=== PATIENT | female | born 1965 | race African-American/Black ===

== ENCOUNTER 2023-07-16 17:35 | Observation (INO) | payer MEDICARE, OTHER ==
[2023-07-16] MEDS ORDERED: Ondansetron ODT 4 MG TAB PO PRN (18:03)
[2023-07-16] MEDS ORDERED: Ondansetron PF 4 MG/2 ML Vial IVP PRN (18:03)
[2023-07-16] MEDS ORDERED: Acetaminophen 325 MG TAB PO PRN (18:03)
[2023-07-16] MEDS ORDERED: Dextrose 50% Abboject 50 ML SYRINGE SLOW IVP PRN (18:04)
[2023-07-16] MEDS ORDERED: Glucagon 1 MG/ML KIT IM PRN (18:04)
[2023-07-16] MEDS ORDERED: HumaLOG 300 UNITS/3 ML VIAL SC PRN (18:04)
[2023-07-16] MEDS ORDERED: Dextrose 5% in Water 1,000 ML IV PRN (18:04)
[2023-07-16 18:15] VITALS: BMI 57.0
[2023-07-16 19:16] LABS: Troponin I Less than 0.010 ng/mL (< 0.028)
[2023-07-16] MEDS: Acetaminophen/Codeine 30-300mg Tablet PO PRN (21:57)
[2023-07-16 22:06] LABS: Troponin I Less than 0.010 ng/mL (< 0.028)
[2023-07-17] MEDS: Acetaminophen/Codeine 30-300mg Tablet PO PRN (04:06)
[2023-07-17 04:45] LABS: #Eosinphils 0.1 10x3/uL (0.0-0.5); #Monocytes 0.4 10x3/uL (0.0-1.1); #Neutrophils 1.8 10x3/uL (1.5-8.4); %Basophils 0.6 % (0.0-2.0); %Eosinophils 1.4 % (0.0-6.0); %Lymphocytes 54.5 % (18.0-47.0); %Monocytes 7.3 % (0.0-10.0); Hematocrit 34.2 % (34.9-44.5); Hemoglobin 10.8 g/dL (12.0-15.5); Mean Corpuscular HGB CONC 31.6 g/dL (32.0-36.0); Mean Corpuscular Hemoglobin 26.7 pg (27.0-33.0); Mean Corpuscular Volume 84.7 fl (81.6-98.3); Mean Platelet Volume 11.1 fl (7.4-10.4); Platelet Count 219 10x3/uL (150-450); RBC Distribution Width 14.1 % (11.5-14.5); Red Blood Cell (RBC) Count 4.04 10x6/uL (3.90-5.03); White Blood Cell (WBC) Count 5.1 10x3/uL (3.5-10.5)
[2023-07-17 04:58] LABS: Anion Gap 14 mmol/L (10-20); BUN (Urea Nitrogen) 8 mg/dL (9.8-20.1); Calc. Creatinine Clearance 195 mL/min (70-130); Calcium 8.3 mg/dL (7.8-10.44); Carbon Dioxide 25 mmol/L (22-29); Cardiac Risk 3.2 (Less than 4.5); Chloride 103 mmol/L (98-107); Cholesterol 169 mg/dl (< 200 Desired); Estimated GFR 83; Glucose 277 mg/dL (70-105); HDL Cholesterol 53 mg/dL (>60 Neg Risk); LDL Cholesterol, Calculated 91 mg/dL; Potassium 3.9 mmol/L (3.5-5.1); Sodium 138 mmol/L (136-145); Triglycerides 126 mg/dL (Less than 150)
[2023-07-17] MEDS: HumaLOG 300 UNITS/3 ML VIAL SC PRN ×2 (06:00→11:21)
[2023-07-17 12:37] VITALS: BP 165/78; TEMP 98
[2023-07-17 14:13] LABS: Hemoglobin A1c 11.4 % (4.0-6.0)
[2023-07-17] MEDS ORDERED: Acetaminophen/Codeine 30-300mg Tablet PO PRN (15:06)
[2023-07-17] MEDS ORDERED: glipiZIDE 5 MG TAB PO SCH (16:30)
[2023-07-17] MEDS ORDERED: Gabapentin 400 MG CAP PO SCH (21:00)
[2023-07-17] MEDS ORDERED: Atorvastatin Calcium 40 MG TAB PO SCH (21:00)
[2023-07-17] MEDS ORDERED: Sacubitril 49 MG/Valsartan 51 MG TABLET PO SCH (21:00)
[2023-07-17] MEDS ORDERED: Metoprolol Tartrate 50 MG TAB PO SCH (21:00)
[2023-07-17] MEDS ORDERED: Lantus 1000 UNITS/10 ML VIAL SC SCH (21:00)
[2023-07-17] MEDS ORDERED: Citalopram 20 MG TAB PO SCH (21:00)
[2023-07-18] MEDS ORDERED: Potassium Chloride 20 MEQ TAB PO SCH (09:00)
[2023-07-18] MEDS ORDERED: Ranolazine 500 MG ER.TAB PO SCH (09:00)
[2023-07-18] MEDS ORDERED: Alogliptin 25 MG TAB PO SCH (09:00)
[2023-07-18] MEDS ORDERED: Aspirin 81 mg Enteric Coated Tablet PO SCH (09:00)
[2023-07-18] MEDS ORDERED: Amlodipine 10 MG TAB PO SCH (09:00)
[2023-07-18] MEDS ORDERED: Clopidogrel Bisulfate 75 MG TAB PO SCH (09:00)
== END 2023-07-17 15:15 | disposition home or self-care (01) ==
LOC: INTOOBSV 17:35 → CSHTELE 17:35
PROVIDERS: ADMIT Family Medicine; ATTEND Family Medicine
DX: R07.9 Chest pain, unspecified (principal); I25.10 Atherosclerotic heart disease of native coronary artery without angina pectoris; I25.5 Ischemic cardiomyopathy; E11.42 Type 2 diabetes mellitus with diabetic polyneuropathy; I10 Essential (primary) hypertension; E78.5 Hyperlipidemia, unspecified; E66.01 Morbid (severe) obesity due to excess calories; M19.90 Unspecified osteoarthritis, unspecified site; Z95.1 Presence of aortocoronary bypass graft; Z88.5 Allergy status to narcotic agent; Z88.6 Allergy status to analgesic agent; Z79.82 Long term (current) use of aspirin; Z79.84 Long term (current) use of oral hypoglycemic drugs; Z79.02 Long term (current) use of antithrombotics/antiplatelets; Z68.43 Body mass index [BMI] 50.0-59.9, adult; Z79.4 Long term (current) use of insulin; Z90.49 Acquired absence of other specified parts of digestive tract; Z95.810 Presence of automatic (implantable) cardiac defibrillator
CPT/HCPCS: 80048; 80061; 82962 ×2; 83036; 84443; 84484; 85025; 93005; 93306; 94760 ×2; G0378 ×2; 36415; 36416; 93010; J1815

== ENCOUNTER 2023-10-31 11:41 | Emergency (ER) | payer MEDICARE, OTHER ==
[2023-10-31 12:39] LABS: #Eosinphils 0.1 10x3/uL (0.0-0.5); #Monocytes 0.4 10x3/uL (0.0-1.1); #Neutrophils 3.5 10x3/uL (1.5-8.4); %Basophils 0.4 % (0.0-2.0); %Lymphocytes 40.9 % (18.0-47.0); %Monocytes 6.2 % (0.0-10.0); %Neutrophils 51.2 % (40.0-75.0); Hematocrit 37.3 % (34.9-44.5); Hemoglobin 12.1 g/dL (12.0-15.5); Mean Corpuscular HGB CONC 32.4 g/dL (32.0-36.0); Mean Corpuscular Hemoglobin 28.5 pg (27.0-33.0); Mean Corpuscular Volume 87.8 fl (81.6-98.3); Mean Platelet Volume 11.3 fl (7.4-10.4); Platelet Count 247 10x3/uL (150-450); RBC Distribution Width 13.7 % (11.5-14.5); Red Blood Cell (RBC) Count 4.25 10x6/uL (3.90-5.03); White Blood Cell (WBC) Count 6.8 10x3/uL (3.5-10.5)
[2023-10-31 12:49] LABS: ALT (SGPT) 15 U/L (8-55); AST (SGOT) 10 U/L (5-34); Albumin 3.7 g/dL (3.5-5.0); Alkaline Phosphatase 143 U/L (40-110); Anion Gap 12 mmol/L (10-20); BUN (Urea Nitrogen) 10 mg/dL (9.8-20.1); Bilirubin, Total 0.6 mg/dL (0.2-1.2); Calc. Creatinine Clearance 0 mL/min (70-130); Calcium 8.4 mg/dL (7.8-10.44); Carbon Dioxide 26 mmol/L (22-29); Chloride 104 mmol/L (98-107); Estimated GFR 75; Globulin 2.8 g/dL (2.4-3.5); Glucose 221 mg/dL (70-105); Lipase 19 U/L (8-78); Protein, Total 6.5 g/dL (6.0-8.3); Sodium 138 mmol/L (136-145)
[2023-10-31 12:55] LABS: Troponin I Less than 0.010 ng/mL (< 0.028)
[2023-10-31] MEDS ORDERED: Aspirin Chewable 81 MG TAB ONE (12:55)
== END 2023-10-31 17:44 | disposition home or self-care (01) ==
LOC: CSHERS 11:41
DX: R07.9 Chest pain, unspecified (principal); E11.9 Type 2 diabetes mellitus without complications; I10 Essential (primary) hypertension
CPT/HCPCS: 36415; 71045; 80053; 83690; 83880; 84484; 85025; 93005